=== PATIENT | female | born 1960 | race Caucasian/White ===

== ENCOUNTER 2017-02-22 10:00 | Emergency (ER) | payer OTHER ==
--- NOTE | 2017-02-22 11:30 | RAD ---
TWO VIEWS OF THE CHEST: COMPARISON: None. HISTORY: Fever, cough, and congestion for 10 days. FINDINGS: Two views of the chest show normal sized cardiomediastinal silhouette. There is no evidence of conso lidation, mass, or pleural effusion. The bones are unremarkable. IMPRESSION: No evidence of acute cardiopulmonary disease. POS: [id number]
== END 2017-02-22 10:34 | disposition home or self-care (01) ==
LOC: NAV ERS 10:00
DX: J20.9 Acute bronchitis, unspecified (principal); F17.210 Nicotine dependence, cigarettes, uncomplicated; E03.9 Hypothyroidism, unspecified; I10 Essential (primary) hypertension
CPT/HCPCS: 71020